=== PATIENT | male | born 1975 | race Caucasian/White ===

== ENCOUNTER 2024-02-03 16:09 | Inpatient (IN) | payer BC ==
[~2024-02-03] VITALS: Ht 188 cm; Wt 94.8 kg
[~2024-02-03 16:09] MED LIST: ASPI-524; FINA-37; PROP80TA4
[2024-02-03 16:10] VITALS: BP_SYST 113; PULSE 89; RESP 17; TEMP 97.4; O2SAT 94
[2024-02-03] MEDS: NACL 0.9% 1,000 ML IV ONE (17:23)
[2024-02-03] MEDS: ONDANSETRON HCL 4 MG/2 ML VIAL IVP ONE (17:23)
[2024-02-03 17:28] LABS: BASOPHILS % (AUTO) 0.3 % (0.0-2.0); HEMATOCRIT 44.4 % (36-54); HEMOGLOBIN 14.9 g/dL (14.0-18.0); LYMPHOCYTES # (AUTO) 0.8 K/uL (1.0-5.5); LYMPHOCYTES % (AUTO) 4.7 % (20.5-51.5); MEAN CORPUSCULAR HEMOGLOBIN 29 pg (27-31); MEAN CORPUSCULAR HGB CONC 34 % (32-36); MEAN CORPUSCULAR VOLUME 85 fL (79.0-98.0); MONOCYTES % (AUTO) 5.9 % (1.7-9.3); NEUTROPHILS % (AUTO) 89.1 % (40.0-70.0); PLATELET COUNT (AUTO) 298 K/uL (130-430); RED BLOOD CELL COUNT(AUTO) 5.23 MIL/uL (4.2-6.2); RED CELL DISTRIBUTION WIDTH 13.2 % (9.0-15.0); WHITE BLOOD COUNT (AUTO) 16.9 K/uL (4.8-10.8)
[2024-02-03 17:58] LABS: ANION GAP 11 (5-15); CALCIUM 8.9 mg/dL (8.4-11.0); CARBON DIOXIDE 28 mmol/L (23-29); CHLORIDE 98 mmol/L (98-107); CREATININE 0.79 mg/dL (0.55-1.30); GFR AFRICAN AMERICAN 135 mL/min (>90); GFR NON AFRICAN-AMERICAN 112 mL/min (>90); GLUCOSE 149 mg/dL (74-106); LIPASE 29 U/L (16-77); POTASSIUM 4.5 mmol/L (3.5-5.1); SODIUM SERUM 137 mmol/L (136-145); UREA NITROGEN, BLOOD 19 mg/dL (8-21)
[2024-02-03 19:07] LABS: BILIRUBIN,URINE NEGATIVE (NEGATIVE); BLOOD, URINE NEGATIVE (NEGATIVE); CLARITY/URINE SL CLOUDY (CLEAR); COLOR,URINE YELLOW (YELLOW); GLUCOSE,URINE NEGATIVE (NEGATIVE); KETONES,URINE NEGATIVE (NEGATIVE); LEUKOCYTE ESTERASE ,URINE NEGATIVE (NEGATIVE); NITRITE, URINE NEGATIVE (NEGATIVE); PH,URINE 7.5 (5.0-8.0); PROTEIN URINE NEGATIVE (NEGATIVE); UROBILINOGEN,URINE 0.2 (0.2-1.0)
[2024-02-03 19:12] LABS: BACTERIA,URINE FEW /HPF (None Seen); RBC,URINE 0-3 /HPF (0-3); WBC,URINE 0-3 /HPF (0-3)
[2024-02-03 19:13] LABS: MUCUS,URINE 1+ /LPF (None Seen); URINE AMORPHOUS URATE 2+ /HPF (None Seen)
[2024-02-03 20:15] LABS: INFLUENZA TYPE A Negative (NEGATIVE); INFLUENZA TYPE B NEGATIVE (NEGATIVE)
[2024-02-03] MEDS ORDERED: NITROGLYCERIN 0.4 MG TAB.SUBL SL PRN (20:15)
[2024-02-03] MEDS ORDERED: ACETAMINOPHEN 325 MG TABLET PO PRN (20:15)
[2024-02-03] MEDS ORDERED: HYDROcodone/ACETAMIN 5-325 MG TAB (NORCO/ VICODIN) PO PRN (20:15)
[2024-02-04] VITALS (7 sets, daily range): BP systolic 110–135; PULSE 87–104; RESP 16–20; TEMP 96–97.5; O2SAT 92–97
[2024-02-04] MEDS: MORPHINE 2 MG/ML INJ. SYRINGE IVP PRN (01:02)
[2024-02-04] MEDS ORDERED: DECADRON 4 MG TABLET ONE (01:11)
[2024-02-04] MEDS: DEXAMETHASONE 1 MG TABLET (DECADRON) PO ONE (01:12)
[2024-02-04] MEDS ORDERED: *HEPARIN PER PHARMACY XX PRN (04:15)
[2024-02-04 04:45] LABS: BASOPHILS # (AUTO) 0.1 K/uL (0.0-0.2); BASOPHILS % (AUTO) 0.3 % (0.0-2.0); HEMATOCRIT 41.7 % (36-54); HEMOGLOBIN 14.4 g/dL (14.0-18.0); LYMPHOCYTES # (AUTO) 0.7 K/uL (1.0-5.5); LYMPHOCYTES % (AUTO) 3.3 % (20.5-51.5); MEAN CORPUSCULAR HEMOGLOBIN 29 pg (27-31); MEAN CORPUSCULAR HGB CONC 35 % (32-36); MEAN CORPUSCULAR VOLUME 84 fL (79.0-98.0); MONOCYTES # (AUTO) 1.5 K/uL (0.0-1.0); MONOCYTES % (AUTO) 6.9 % (1.7-9.3); NEUTROPHILS # (AUTO) 19.3 K/uL (1.8-7.7); NEUTROPHILS % (AUTO) 89.5 % (40.0-70.0); PLATELET COUNT (AUTO) 287 K/uL (130-430); RED BLOOD CELL COUNT(AUTO) 4.95 MIL/uL (4.2-6.2); RED CELL DISTRIBUTION WIDTH 13.3 % (9.0-15.0); WHITE BLOOD COUNT (AUTO) 21.6 K/uL (4.8-10.8)
[2024-02-04 04:56] LABS: ALBUMIN 2.6 g/dL (3.4-4.8); CALCIUM 8.7 mg/dL (8.4-11.0); CREATININE 0.78 mg/dL (0.55-1.30); TOTAL BILIRUBIN 0.8 mg/dL (0.0-1.0)
[2024-02-04] MEDS ORDERED: HEPARIN SODIUM,PORCINE 2000 UNITS/0.4 ML BOLUS IVP PRN (08:30)
[2024-02-04] MEDS ORDERED: HEPARIN SODIUM,PORCINE 5,000 UNITS/ML VIAL SUBCUT SCH (09:00)
[2024-02-04] MEDS: levETIRAcetam 500 MG TABLET PO ONE (11:06)
[2024-02-04] MEDS: FINASTERIDE 5 MG TABLET (PROSCAR) PO SCH (11:06)
[2024-02-04] MEDS: PROPRANOLOL HCL 80 MG (INDERAL LA 80MG) PO SCH (11:13)
[2024-02-04] MEDS ORDERED: PRO40 PO (13:05)
[2024-02-04] MEDS ORDERED: MULT-1089 PO (13:05)
[2024-02-04] MEDS ORDERED: PRED10TA PO (13:05)
[2024-02-04] MEDS ORDERED: MAGN400T10 PO (13:05)
[2024-02-04] MEDS ORDERED: CYAN100010 PO (13:05)
[2024-02-04] MEDS ORDERED: LEVE500T9 PO (13:05)
[2024-02-04] MEDS: HEPARIN SODIUM,PORCINE 5,000 UNITS/ML VIAL IV ONE (15:17)
[2024-02-04] MEDS: HEPARIN 25,000 UNITS in 250 ML PREMIX IV PRN (15:19)
[2024-02-04] MEDS: DECADRON 4 MG TABLET PO SCH (20:40)
[2024-02-04] MEDS: levETIRAcetam 500 MG TABLET PO SCH (20:40)
[2024-02-05] VITALS: BP_SYST 115; PULSE 81; RESP 18; TEMP 97.6; O2SAT 95
[2024-02-05] MEDS: HEPARIN SODIUM,PORCINE 3000 UNITS/0.6 ML BOLUS IVP PRN (00:59)
[2024-02-05 04:39] LABS: BASOPHILS % (AUTO) 0.1 % (0.0-2.0); HEMATOCRIT 41.8 % (36-54); HEMOGLOBIN 14.5 g/dL (14.0-18.0); LYMPHOCYTES # (AUTO) 0.9 K/uL (1.0-5.5); LYMPHOCYTES % (AUTO) 5.4 % (20.5-51.5); MEAN CORPUSCULAR HEMOGLOBIN 29 pg (27-31); MEAN CORPUSCULAR HGB CONC 35 % (32-36); MEAN CORPUSCULAR VOLUME 85 fL (79.0-98.0); MONOCYTES # (AUTO) 0.8 K/uL (0.0-1.0); MONOCYTES % (AUTO) 4.8 % (1.7-9.3); NEUTROPHILS # (AUTO) 15.1 K/uL (1.8-7.7); NEUTROPHILS % (AUTO) 89.7 % (40.0-70.0); PLATELET COUNT (AUTO) 282 K/uL (130-430); RED BLOOD CELL COUNT(AUTO) 4.94 MIL/uL (4.2-6.2); RED CELL DISTRIBUTION WIDTH 13.2 % (9.0-15.0); WHITE BLOOD COUNT (AUTO) 16.9 K/uL (4.8-10.8)
[2024-02-05 05:15] LABS: ALBUMIN 2.5 g/dL (3.4-4.8); CREATININE 0.85 mg/dL (0.55-1.30); POTASSIUM 4.3 mmol/L (3.5-5.1); TOTAL BILIRUBIN 0.5 mg/dL (0.0-1.0); TOTAL PROTEIN, SERUM 6.9 g/dL (6.4-8.3)
[2024-02-05 08:20] VITALS: O2SAT 98
[2024-02-05 08:33] VITALS: BP_SYST 115; PULSE 86; RESP 18; TEMP 98.4; O2SAT 98
[2024-02-05 12:30] VITALS: BP_SYST 114; PULSE 78; RESP 18; TEMP 97.4; O2SAT 97
[2024-02-05 16:57] VITALS: BP_SYST 108; PULSE 74; RESP 16; TEMP 97.9; O2SAT 98
[2024-02-05 20:00] VITALS: BP_SYST 99; PULSE 59; RESP 18; TEMP 97.7; O2SAT 95; O2SAT 98
[2024-02-06] VITALS (7 sets, daily range): BP systolic 90–119; PULSE 60–71; RESP 16–20; TEMP 97.3–98.6; O2SAT 95–100
[2024-02-06 06:04] LABS: BASOPHILS % (AUTO) 0.1 % (0.0-2.0); HEMATOCRIT 41.2 % (36-54); LYMPHOCYTES # (AUTO) 0.9 K/uL (1.0-5.5); MEAN CORPUSCULAR HEMOGLOBIN 29 pg (27-31); MEAN CORPUSCULAR HGB CONC 34 % (32-36); MEAN CORPUSCULAR VOLUME 85 fL (79.0-98.0); MONOCYTES # (AUTO) 1.5 K/uL (0.0-1.0); MONOCYTES % (AUTO) 8.1 % (1.7-9.3); NEUTROPHILS # (AUTO) 15.7 K/uL (1.8-7.7); NEUTROPHILS % (AUTO) 86.8 % (40.0-70.0); PLATELET COUNT (AUTO) 302 K/uL (130-430); RED BLOOD CELL COUNT(AUTO) 4.83 MIL/uL (4.2-6.2); RED CELL DISTRIBUTION WIDTH 12.8 % (9.0-15.0); WHITE BLOOD COUNT (AUTO) 18.1 K/uL (4.8-10.8)
[2024-02-06 06:20] LABS: CALCIUM 9.1 mg/dL (8.4-11.0); CREATININE 0.61 mg/dL (0.55-1.30); POTASSIUM 4.1 mmol/L (3.5-5.1)
[2024-02-06] MEDS ORDERED: PROPRANOLOL HCL 80 MG (INDERAL LA 80MG) PO SCH (09:00)
[2024-02-06] MEDS: PROPRANOLOL HCL 10 MG TABLET (INDERAL) PO ONE (11:39)
[2024-02-06] MEDS: DEXAMETHASONE SOD PHOSPHATE 10 MG/ML VIAL IVP SCH (18:06)
[2024-02-06] MEDS: PROPRANOLOL HCL 10 MG TABLET (INDERAL) PO SCH (20:48)
[2024-02-06] MEDS: DOCUSATE SODIUM 100 MG CAPSULE PO SCH (20:50)
[2024-02-07 02:07] VITALS: BP_SYST 112; PULSE 52; RESP 17; TEMP 98.4; O2SAT 99
[2024-02-07 06:38] LABS: BASOPHILS % (AUTO) 0.2 % (0.0-2.0); HEMATOCRIT 42.4 % (36-54); HEMOGLOBIN 14.4 g/dL (14.0-18.0); LYMPHOCYTES # (AUTO) 0.7 K/uL (1.0-5.5); LYMPHOCYTES % (AUTO) 5.1 % (20.5-51.5); MEAN CORPUSCULAR HEMOGLOBIN 29 pg (27-31); MEAN CORPUSCULAR HGB CONC 34 % (32-36); MEAN CORPUSCULAR VOLUME 84 fL (79.0-98.0); MONOCYTES # (AUTO) 0.5 K/uL (0.0-1.0); MONOCYTES % (AUTO) 3.8 % (1.7-9.3); NEUTROPHILS % (AUTO) 90.9 % (40.0-70.0); PLATELET COUNT (AUTO) 326 K/uL (130-430); RED BLOOD CELL COUNT(AUTO) 5.02 MIL/uL (4.2-6.2); RED CELL DISTRIBUTION WIDTH 12.7 % (9.0-15.0); WHITE BLOOD COUNT (AUTO) 14.3 K/uL (4.8-10.8)
[2024-02-07 06:45] LABS: CALCIUM 8.6 mg/dL (8.4-11.0); CREATININE 0.65 mg/dL (0.55-1.30); POTASSIUM 4.1 mmol/L (3.5-5.1)
[2024-02-07 08:00] VITALS: BP_SYST 130; PULSE 60; RESP 20; TEMP 97.4; O2SAT 98
[2024-02-07] MEDS: POLYETHYLENE GLYCOL 3350, 17 GM/ POWD.PACK PO SCH (09:23)
[2024-02-07] MEDS: PANTOPRAZOLE SODIUM 40 MG TAB PO SCH (09:23)
[2024-02-07 12:57] VITALS: BP_SYST 125; PULSE 58; RESP 18; TEMP 97.8; O2SAT 97
[2024-02-07 16:57] VITALS: BP_SYST 128; PULSE 62; RESP 19; TEMP 97.6; O2SAT 98
[2024-02-07 20:00] VITALS: BP_SYST 106; PULSE 73; RESP 18; TEMP 97.6; O2SAT 96
[2024-02-08 00:18] VITALS: BP_SYST 118; PULSE 68; RESP 18; TEMP 97.8; O2SAT 98
[2024-02-08 06:09] LABS: BASOPHILS % (AUTO) 0.1 % (0.0-2.0); HEMATOCRIT 42.3 % (36-54); HEMOGLOBIN 14.5 g/dL (14.0-18.0); LYMPHOCYTES % (AUTO) 5.3 % (20.5-51.5); MEAN CORPUSCULAR HEMOGLOBIN 29 pg (27-31); MEAN CORPUSCULAR HGB CONC 34 % (32-36); MEAN CORPUSCULAR VOLUME 84 fL (79.0-98.0); MONOCYTES # (AUTO) 0.4 K/uL (0.0-1.0); MONOCYTES % (AUTO) 2.4 % (1.7-9.3); NEUTROPHILS # (AUTO) 16.6 K/uL (1.8-7.7); NEUTROPHILS % (AUTO) 92.2 % (40.0-70.0); PLATELET COUNT (AUTO) 348 K/uL (130-430); RED BLOOD CELL COUNT(AUTO) 5.02 MIL/uL (4.2-6.2)
[2024-02-08 06:23] LABS: CALCIUM 8.9 mg/dL (8.4-11.0); CREATININE 0.68 mg/dL (0.55-1.30); POTASSIUM 4.4 mmol/L (3.5-5.1)
[2024-02-08 08:00] VITALS: BP_SYST 127; PULSE 73; RESP 18; TEMP 98.1; O2SAT 98
[2024-02-08 11:50] VITALS: BP_SYST 106; PULSE 63; RESP 16; TEMP 97.8; O2SAT 98
[2024-02-08] MEDS: traMADol HCL HCL 50 MG TABLET (ULTRAM) PO PRN (16:05)
[2024-02-08 16:13] VITALS: BP_SYST 115; PULSE 63; RESP 17; TEMP 98.1; O2SAT 98
[2024-02-08 20:00] VITALS: BP_SYST 97; PULSE 63; RESP 16; TEMP 97.7; O2SAT 96
[2024-02-09 00:50] VITALS: BP_SYST 116; PULSE 60; RESP 18; TEMP 96.9; O2SAT 97
[2024-02-09 06:54] LABS: BASOPHILS % (AUTO) 0.1 % (0.0-2.0); HEMATOCRIT 43.9 % (36-54); LYMPHOCYTES % (AUTO) 4.5 % (20.5-51.5); MEAN CORPUSCULAR HEMOGLOBIN 29 pg (27-31); MEAN CORPUSCULAR HGB CONC 34 % (32-36); MEAN CORPUSCULAR VOLUME 85 fL (79.0-98.0); MONOCYTES # (AUTO) 1.2 K/uL (0.0-1.0); MONOCYTES % (AUTO) 5.5 % (1.7-9.3); NEUTROPHILS # (AUTO) 19.1 K/uL (1.8-7.7); NEUTROPHILS % (AUTO) 89.9 % (40.0-70.0); PLATELET COUNT (AUTO) 361 K/uL (130-430); RED BLOOD CELL COUNT(AUTO) 5.19 MIL/uL (4.2-6.2); WHITE BLOOD COUNT (AUTO) 21.2 K/uL (4.8-10.8)
[2024-02-09 07:18] LABS: CALCIUM 8.7 mg/dL (8.4-11.0); CREATININE 0.67 mg/dL (0.55-1.30); POTASSIUM 4.1 mmol/L (3.5-5.1)
[2024-02-09 08:00] VITALS: BP_SYST 118; PULSE 64; RESP 17; TEMP 98.9; O2SAT 97
[2024-02-09 15:31] VITALS: BP_SYST 104; PULSE 65; RESP 16; TEMP 98.2; O2SAT 96
[2024-02-09 21:00] VITALS: BP_SYST 105; PULSE 62; RESP 18; TEMP 97.4; O2SAT 95
[2024-02-10] VITALS (7 sets, daily range): BP systolic 103–121; PULSE 55–69; RESP 16–18; TEMP 96.5–98.4; O2SAT 95–98
[2024-02-10 05:41] LABS: CALCIUM 8.5 mg/dL (8.4-11.0); CREATININE 0.69 mg/dL (0.55-1.30); POTASSIUM 3.7 mmol/L (3.5-5.1)
[2024-02-10 06:07] LABS: BASOPHILS # (AUTO) 0.1 K/uL (0.0-0.2); BASOPHILS % (AUTO) 0.3 % (0.0-2.0); HEMOGLOBIN 15.2 g/dL (14.0-18.0); LYMPHOCYTES # (AUTO) 0.9 K/uL (1.0-5.5); LYMPHOCYTES % (AUTO) 3.8 % (20.5-51.5); MEAN CORPUSCULAR HEMOGLOBIN 29 pg (27-31); MEAN CORPUSCULAR HGB CONC 34 % (32-36); MEAN CORPUSCULAR VOLUME 85 fL (79.0-98.0); MONOCYTES # (AUTO) 1.6 K/uL (0.0-1.0); MONOCYTES % (AUTO) 6.7 % (1.7-9.3); NEUTROPHILS # (AUTO) 20.6 K/uL (1.8-7.7); NEUTROPHILS % (AUTO) 89.2 % (40.0-70.0); PLATELET COUNT (AUTO) 399 K/uL (130-430); RED BLOOD CELL COUNT(AUTO) 5.17 MIL/uL (4.2-6.2); WHITE BLOOD COUNT (AUTO) 23.1 K/uL (4.8-10.8)
[2024-02-10] MEDS: DEXAMETHASONE SOD PHOSPHATE 10 MG/ML VIAL IVP SCH (21:42)
== END 2024-02-10 22:16 | disposition short-term general hospital (02) | DRG 175 ==
LOC: SED 16:09 → STU 20:10 → SMU 02-04 04:10 → STU 02-04 04:55
PROVIDERS: ADMIT Internal Medicine; ATTEND Internal Medicine
PROC: 4A10X4Z Monitoring of Central Nervous Electrical Activity, External Approach (ICD-10-PCS; principal; 2024-02-05)
DX: I26.99 Other pulmonary embolism without acute cor pulmonale (principal); E43 Unspecified severe protein-calorie malnutrition; I21.A1 Myocardial infarction type 2; C71.9 Malignant neoplasm of brain, unspecified; I82.432 Acute embolism and thrombosis of left popliteal vein; I82.442 Acute embolism and thrombosis of left tibial vein; Z20.822 Contact with and (suspected) exposure to COVID-19; R09.02 Hypoxemia; I51.9 Heart disease, unspecified; T38.0X5A Adverse effect of glucocorticoids and synthetic analogues, initial encounter; I27.20 Pulmonary hypertension, unspecified; G89.29 Other chronic pain; R56.9 Unspecified convulsions; Z80.0 Family history of malignant neoplasm of digestive organs; Y92.89 Other specified places as the place of occurrence of the external cause; Z68.26 Body mass index [BMI] 26.0-26.9, adult
CPT/HCPCS: 36415; 70450-TC; 71045; 71275; 80048; 80053; 81000; 81001; 81015; 83605; 83690; 83735; 83880; 84484; 85025; 85379; 85730; 87040; 87086; 93005; 93306; 93970; 96361; 96365; 99285; G0378; J1100; J1644; J1956; J2270; J2405; J8540

== ENCOUNTER 2024-04-22 11:56 | Inpatient (IN) | payer BC ==
[~2024-04-22] VITALS: Ht 188 cm; Wt 101.2 kg
[~2024-04-22 11:56] MED LIST changes: -ASPI-524; +ASPI-524 PO; +CYAN100010 PO; -FINA-37; +FINA-37 PO; +LEVE500T9 PO; +MAGN400T10 PO; +MULT-1089 PO; +PRED10TA PO; +PRO40 PO
[2024-04-22 11:58] VITALS: BP_SYST 115; PULSE 86; RESP 18; O2SAT 98
[2024-04-22] MEDS ORDERED: MULT-1117 PO (12:02)
[2024-04-22] MEDS ORDERED: CYAN100070 PO (12:02)
[2024-04-22] MEDS ORDERED: MELA1TAB29 PO (12:02)
[2024-04-22] MEDS ORDERED: APIX5TAB PO (12:02)
[2024-04-22] MEDS ORDERED: DOCU-156 PO (12:02)
[2024-04-22] MEDS ORDERED: MAGN100T6 PO (12:02)
[2024-04-22] MEDS ORDERED: NEU300 PO (12:02)
[2024-04-22] MEDS ORDERED: iohexoL 350 mgI/mL, 100 ML INFUS..BTL IV ONE (12:07)
[2024-04-22 12:20] LABS: BASOPHILS % (AUTO) 0.2 % (0.0-2.0); EOSINOPHILS % (AUTO) 0.1 % (0.0-4.0); HEMATOCRIT 39.7 % (36-54); HEMOGLOBIN 13.2 g/dL (14.0-18.0); LYMPHOCYTES # (AUTO) 0.6 K/uL (1.0-5.5); LYMPHOCYTES % (AUTO) 6.1 % (20.5-51.5); MEAN CORPUSCULAR HEMOGLOBIN 30 pg (27-31); MEAN CORPUSCULAR HGB CONC 33 % (32-36); MEAN CORPUSCULAR VOLUME 91 fL (79.0-98.0); MONOCYTES # (AUTO) 0.4 K/uL (0.0-1.0); MONOCYTES % (AUTO) 4.3 % (1.7-9.3); NEUTROPHILS # (AUTO) 8.8 K/uL (1.8-7.7); NEUTROPHILS % (AUTO) 89.3 % (40.0-70.0); PLATELET COUNT (AUTO) 111 K/uL (130-430); RED BLOOD CELL COUNT(AUTO) 4.38 MIL/uL (4.2-6.2); RED CELL DISTRIBUTION WIDTH 16.7 % (9.0-15.0); WHITE BLOOD COUNT (AUTO) 9.8 K/uL (4.8-10.8)
[2024-04-22 12:40] LABS: PROTHROMBIN TIME 10.1 SECS (9.5-12.5)
[2024-04-22 12:43] LABS: ANION GAP 9 (5-15); CALCIUM 8.5 mg/dL (8.4-11.0); CARBON DIOXIDE 26 mmol/L (23-29); CHLORIDE 105 mmol/L (98-107); CHOLESTEROL 156 mg/dL (<200); GFR AFRICAN AMERICAN 186 mL/min (>90); GLUCOSE 160 mg/dL (74-106); HDL CHOLESTEROL 37 mg/dL (>45); POTASSIUM 3.8 mmol/L (3.5-5.1); SODIUM SERUM 140 mmol/L (136-145); TRIGLYCERIDES 156 mg/dL (30-150); UREA NITROGEN, BLOOD 17 mg/dL (8-21)
[2024-04-22 12:44] LABS: GFR NON AFRICAN-AMERICAN 153 mL/min (>90)
[2024-04-22 12:49] LABS: HEMOGLOBIN A1C 5.5 % (<5.7)
[2024-04-22] MEDS ORDERED: SULF1TAB48 PO (13:04)
[2024-04-22] MEDS: DEXAMETHASONE SOD PHOSPHATE 10 MG/ML VIAL IVP ONE (14:57)
[2024-04-22] MEDS: levETIRAcetam 1,000 MG IV BAG 100 ML IV ONE (23:58)
[2024-04-23] MEDS: APIXABAN 2.5 MG TABLET ONE (00:07)
[2024-04-23] MEDS: APIXABAN 2.5 MG TABLET PO ONE (00:18)
[2024-04-23] MEDS: HYDROcodone/ACETAMIN 10-325 MG TAB PO ONE (01:11)
[2024-04-23] MEDS: ACETAMINOPHEN 325 MG TABLET PO ONE (12:26)
[2024-04-23] MEDS ORDERED: DEXA20TA PO (16:59)
[2024-04-23] MEDS: HYDROcodone/ACETAMIN 10-325 MG TAB PO PRN (19:52)
[2024-04-23 20:00] VITALS: BP_SYST 120; PULSE 101; RESP 14; TEMP 97.9; O2SAT 95
[2024-04-23 20:31] VITALS: O2SAT 96
[2024-04-23] MEDS: APIXABAN 2.5 MG TABLET PO SCH (21:12)
[2024-04-23] MEDS: levETIRAcetam 500 MG TABLET PO ONE (21:12)
[2024-04-24] VITALS (8 sets, daily range): BP systolic 94–121; PULSE 70–91; RESP 16–18; TEMP 96.2–98.3; O2SAT 95–99
[2024-04-24] MEDS ORDERED: CYANOCOBALAMIN 1000 MCG PO SCH (10:30)
[2024-04-24] MEDS ORDERED: NALOXONE HCL 0.4 MG/ML AMP (NARCAN) IVP PRN (10:30)
[2024-04-24] MEDS ORDERED: HYDROcodone/ACETAMIN 5-325 MG TAB (NORCO/ VICODIN) PO PRN (10:30)
[2024-04-24] MEDS ORDERED: ACETAMINOPHEN 325 MG TABLET PO PRN (10:30)
[2024-04-24] MEDS ORDERED: PROPRANOLOL HCL 10 MG TABLET (INDERAL) PO SCH (10:30)
[2024-04-24] MEDS ORDERED: LORazepam 2 MG/ML VIAL IVP PRN (10:30)
[2024-04-24] MEDS ORDERED: ONDANSETRON HCL 4 MG/2 ML VIAL IVP PRN (10:30)
[2024-04-24 11:37] LABS: BASOPHILS % (AUTO) 0.3 % (0.0-2.0); EOSINOPHILS % (AUTO) 0.3 % (0.0-4.0); HEMATOCRIT 40.1 % (36-54); HEMOGLOBIN 13.5 g/dL (14.0-18.0); LYMPHOCYTES # (AUTO) 1.1 K/uL (1.0-5.5); LYMPHOCYTES % (AUTO) 13.8 % (20.5-51.5); MEAN CORPUSCULAR HEMOGLOBIN 30 pg (27-31); MEAN CORPUSCULAR HGB CONC 34 % (32-36); MEAN CORPUSCULAR VOLUME 90 fL (79.0-98.0); MONOCYTES # (AUTO) 0.6 K/uL (0.0-1.0); MONOCYTES % (AUTO) 7.2 % (1.7-9.3); NEUTROPHILS # (AUTO) 6.2 K/uL (1.8-7.7); NEUTROPHILS % (AUTO) 78.4 % (40.0-70.0); PLATELET COUNT (AUTO) 120 K/uL (130-430); RED BLOOD CELL COUNT(AUTO) 4.46 MIL/uL (4.2-6.2); RED CELL DISTRIBUTION WIDTH 16.7 % (9.0-15.0); WHITE BLOOD COUNT (AUTO) 7.9 K/uL (4.8-10.8)
[2024-04-24 12:01] LABS: ALBUMIN 2.7 g/dL (3.4-4.8); CALCIUM 8.8 mg/dL (8.4-11.0); CREATININE 0.5 mg/dL (0.55-1.30); POTASSIUM 3.5 mmol/L (3.5-5.1); TOTAL BILIRUBIN 0.3 mg/dL (0.0-1.0); TOTAL PROTEIN, SERUM 5.9 g/dL (6.4-8.3)
[2024-04-24] MEDS: ASPIRIN 81 MG TAB.CHEW PO ONE (14:22)
[2024-04-24] MEDS: DOCUSATE SODIUM 100 MG CAPSULE PO ONE (14:22)
[2024-04-24] MEDS: MULTIVITAMINS TAB 1 TABLET PO ONE (14:22)
[2024-04-24] MEDS: FINASTERIDE 5 MG TABLET (PROSCAR) PO ONE (14:22)
[2024-04-24] MEDS: CYANOCOBALAMIN (VITAMIN B-12) 1,000 MCG TABLET PO ONE (14:23)
[2024-04-24] MEDS: MAGNESIUM OXIDE 400 MG TABLET PO ONE (14:23)
[2024-04-24] MEDS: NORMAL SALINE 5 ML DISP.SYRIN IVF SCH (14:28)
[2024-04-24] MEDS: PANTOPRAZOLE SODIUM 40 MG TAB PO ONE (14:30)
[2024-04-24] MEDS ORDERED: NON-FORMULARY MEDICATION (Melatonin/Pyridoxine HCl (B6) (Melatonin 3 mg Tablet) 1 TAB) PO SCH (21:00)
[2024-04-24] MEDS: MELATONIN PO SCH (21:00)
[2024-04-24] MEDS ORDERED: predniSONE 10 MG TABLET PO SCH (21:00)
[2024-04-24] MEDS: PYRIDOXINE HCL PO SCH (21:00)
[2024-04-24] MEDS: GABAPENTIN 300 MG CAPSULE PO SCH (22:31)
[2024-04-24] MEDS: APIXABAN 2.5 MG TABLET PO SCH (22:32)
[2024-04-24] MEDS: levETIRAcetam 500 MG TABLET PO SCH (22:32)
[2024-04-25] VITALS: BP_SYST 98; PULSE 73; RESP 18; TEMP 98.7; O2SAT 97
[2024-04-25 04:39] LABS: BASOPHILS % (AUTO) 0.2 % (0.0-2.0); EOSINOPHILS % (AUTO) 0.8 % (0.0-4.0); HEMATOCRIT 38.7 % (36-54); LYMPHOCYTES # (AUTO) 1.3 K/uL (1.0-5.5); LYMPHOCYTES % (AUTO) 21.1 % (20.5-51.5); MEAN CORPUSCULAR HEMOGLOBIN 30 pg (27-31); MEAN CORPUSCULAR HGB CONC 34 % (32-36); MEAN CORPUSCULAR VOLUME 90 fL (79.0-98.0); MONOCYTES # (AUTO) 0.5 K/uL (0.0-1.0); MONOCYTES % (AUTO) 7.8 % (1.7-9.3); NEUTROPHILS # (AUTO) 4.5 K/uL (1.8-7.7); NEUTROPHILS % (AUTO) 70.1 % (40.0-70.0); PLATELET COUNT (AUTO) 129 K/uL (130-430); RED CELL DISTRIBUTION WIDTH 16.5 % (9.0-15.0); WHITE BLOOD COUNT (AUTO) 6.4 K/uL (4.8-10.8)
[2024-04-25 05:16] LABS: CALCIUM 8.7 mg/dL (8.4-11.0); CREATININE 0.54 mg/dL (0.55-1.30); POTASSIUM 3.9 mmol/L (3.5-5.1)
[2024-04-25 07:00] VITALS: O2SAT 99
[2024-04-25 08:00] VITALS: BP_SYST 107; PULSE 86; RESP 18; TEMP 98.7; O2SAT 99
[2024-04-25] MEDS: MAGNESIUM CITRATE PO SCH (09:00)
[2024-04-25] MEDS ORDERED: MAGNESIUM CITRATE PO SCH (09:00)
[2024-04-25] MEDS: DOCUSATE SODIUM 100 MG CAPSULE PO SCH (09:56)
[2024-04-25] MEDS: PANTOPRAZOLE SODIUM 40 MG TAB PO SCH (09:57)
[2024-04-25] MEDS: MULTIVITAMINS TAB 1 TABLET PO SCH (09:58)
[2024-04-25] MEDS: ASPIRIN 81 MG TAB.CHEW PO SCH (09:58)
[2024-04-25] MEDS: FINASTERIDE 5 MG TABLET (PROSCAR) PO SCH (09:59)
[2024-04-25] MEDS: MAGNESIUM OXIDE 400 MG TABLET PO SCH (10:01)
[2024-04-25] MEDS: DEXAMETHASONE 1 MG TABLET (DECADRON) PO SCH (10:03)
[2024-04-25] MEDS: CYANOCOBALAMIN (VITAMIN B-12) 1,000 MCG TABLET PO SCH (10:04)
[2024-04-25 12:00] VITALS: BP_SYST 128; PULSE 88; RESP 18; TEMP 98.7; O2SAT 99
[2024-04-25 16:00] VITALS: BP_SYST 110; PULSE 18; RESP 18; TEMP 97.9; O2SAT 99
[2024-04-25 20:00] VITALS: BP_SYST 117; PULSE 95; RESP 18; TEMP 98.6; O2SAT 98
[2024-04-26 00:20] VITALS: BP_SYST 124; PULSE 85; RESP 18; TEMP 97.9; O2SAT 98
[2024-04-26 04:44] LABS: BASOPHILS % (AUTO) 0.3 % (0.0-2.0); EOSINOPHILS % (AUTO) 0.3 % (0.0-4.0); HEMATOCRIT 37.8 % (36-54); LYMPHOCYTES # (AUTO) 1.4 K/uL (1.0-5.5); LYMPHOCYTES % (AUTO) 18.7 % (20.5-51.5); MEAN CORPUSCULAR HEMOGLOBIN 31 pg (27-31); MEAN CORPUSCULAR HGB CONC 34 % (32-36); MEAN CORPUSCULAR VOLUME 89 fL (79.0-98.0); MONOCYTES # (AUTO) 0.5 K/uL (0.0-1.0); MONOCYTES % (AUTO) 6.7 % (1.7-9.3); NEUTROPHILS # (AUTO) 5.4 K/uL (1.8-7.7); PLATELET COUNT (AUTO) 168 K/uL (130-430); RED BLOOD CELL COUNT(AUTO) 4.24 MIL/uL (4.2-6.2); RED CELL DISTRIBUTION WIDTH 16.5 % (9.0-15.0); WHITE BLOOD COUNT (AUTO) 7.3 K/uL (4.8-10.8)
[2024-04-26 05:09] LABS: ALBUMIN 2.6 g/dL (3.4-4.8); CALCIUM 8.6 mg/dL (8.4-11.0); CREATININE 0.56 mg/dL (0.55-1.30); POTASSIUM 3.5 mmol/L (3.5-5.1); TOTAL BILIRUBIN 0.2 mg/dL (0.0-1.0); TOTAL PROTEIN, SERUM 5.8 g/dL (6.4-8.3)
[2024-04-26 07:30] VITALS: BP_SYST 115; PULSE 80; RESP 16; TEMP 99.1; O2SAT 95
[2024-04-26 09:00] VITALS: O2SAT 95
[2024-04-26 12:48] VITALS: BP_SYST 114; PULSE 83; RESP 16; TEMP 97.9; O2SAT 99
[2024-04-26] MEDS ORDERED: DECADRON 4 MG TABLET PO SCH (13:04)
[2024-04-26 15:38] VITALS: BP_SYST 114; PULSE 83; RESP 16; TEMP 97.9; O2SAT 99
[2024-04-27] MEDS ORDERED: SULFAMETHOXAZOLE/TRIMETHOPR DS 1 TABLET PO SCH (09:00)
[2024-04-28] MEDS ORDERED: SULFAMETHOXAZOLE/TRIMETHOPR DS 1 TABLET PO SCH (09:00)
== END 2024-04-26 16:15 | disposition short-term general hospital (02) | DRG 54 ==
LOC: SED 11:56 → STU 04-23 16:59
PROVIDERS: ADMIT Preventive Medicine Preventive Medicine/Occupational Environmental Medicine; ATTEND Preventive Medicine Preventive Medicine/Occupational Environmental Medicine
DX: C71.9 Malignant neoplasm of brain, unspecified (principal); E43 Unspecified severe protein-calorie malnutrition; G81.04 Flaccid hemiplegia affecting left nondominant side; I10 Essential (primary) hypertension; Z20.822 Contact with and (suspected) exposure to COVID-19; N40.0 Benign prostatic hyperplasia without lower urinary tract symptoms; K21.9 Gastro-esophageal reflux disease without esophagitis; E88.09 Other disorders of plasma-protein metabolism, not elsewhere classified; D69.6 Thrombocytopenia, unspecified; D64.9 Anemia, unspecified; K59.00 Constipation, unspecified; Z79.01 Long term (current) use of anticoagulants; Z86.711 Personal history of pulmonary embolism; Z85.841 Personal history of malignant neoplasm of brain; Z79.899 Other long term (current) drug therapy; Z79.82 Long term (current) use of aspirin; Z68.28 Body mass index [BMI] 28.0-28.9, adult
CPT/HCPCS: 36415; 70450; 70496; 70498; 71045; 80048; 80053; 80061; 83037; 84484; 85025; 85610; 85730; 86886; 86900; 86901; 93005; 96365; 96375; 99291; G0378; J1100; J1953; Q9967